=== PATIENT | male | born 1995 | race Caucasian/White ===

== ENCOUNTER 2024-11-26 09:46 | Emergency (ER) | payer OTHER, SELFPAY ==
[2024-11-26] VITALS (17 sets, daily range): BP systolic 109–147; BP diastolic 70–99; PULSE 64–83; TEMP 36.5; O2SAT 97–100; BMI 29.8
--- NOTE | 2024-11-26 10:08 | ECG_ITS ---
[facility] Test Date: 2024-11-26 Pat Name: MANUEL SWENSON Department: Room: - Gender: Male Public [facility] Dentist: : 1995 Requested By: [id number] Order Number: [id number] Reading MD: DIDI THOMPSON Measurements Intervals [place] Rate: 77 P: 60 AL: 116 QRS: 94 QRSD: 96 T: 54 QT: 368 QTc: 399 Interpretive Statements 1100 Sinus rhythm 2210 Short AL interval 7102 Moderate right axis deviation 9150 abnormal ECG No previous ECG available for comparison Electronically Signed On 11-26-2024 11:34:09 EDT by DIDI THOMPSON
[2024-11-26 10:13] LABS: Basophils Absolute Auto 0.1 10^3/uL (0.0-0.1); Basophils Percent Auto 0.9 % (0.2-2.0); Eosinophils Absolute Auto 0.3 10^3/uL (0.0-0.7); Eosinophils Percent Auto 2.4 % (0.9-7.0); Hematocrit 46.8 % (42.0-54.0); Hemoglobin 16.2 g/dL (14.0-18.0); Immature Granulocytes Abs Auto 0.04 10^3/uL (0.00-0.03); Immature Granulocytes Pct Auto 0.4 % (0.0-0.5); Lymphocytes Absolute Auto 2.8 10^3/uL (1.2-3.8); Lymphocytes Percent Auto 25.3 % (20.5-60.0); Mean Corpuscular HGB Conc 34.6 g/dL (29.9-35.2); Mean Corpuscular Hemoglobin 30.5 pg (25.9-34.0); Mean Corpuscular Volume 88.1 fL (80.0-94.0); Mean Platelet Volume 10.1 fL (9.5-13.5); Monocytes Absolute Auto 0.7 10^3/uL (0.3-0.8); Monocytes Percent Auto 5.9 % (1.7-12.0); Neutrophils Absolute Auto 7.1 10^3/uL (1.4-6.5); Neutrophils Percent Auto 65.1 % (43.0-75.0); Platelet Count 257 10^3/uL (150-450); Red Blood Count 5.31 10^6/uL (4.70-6.10); Red Cell Distribution Width 12.5 % (11.0-15.0); White Blood Count 10.9 10^3/uL (4.0-11.0)
[2024-11-26] MEDS: KETOROLAC TROMETHAMINE 30 MG/ML VIAL 15 MG IVP (10:14)
[2024-11-26] MEDS: ORPHENADRINE 60 MG/2 ML VIAL IV (10:15)
[2024-11-26 10:26] LABS: Alanine Aminotransferase 42 U/L (16-63); Albumin Globulin Ratio 1.2; Albumin Level 4.2 g/dL (3.4-5.0); Alkaline Phosphatase 81 U/L (46-116); Aspartate Amino Transferase 19 U/L (15-37); BUN Creatinine Ratio 12.3; Bilirubin Total 0.3 mg/dL (0.2-1.0); Calcium 9.2 mg/dL (8.5-10.1); Chloride 103 mmol/L (98-107); Estimated GFR (African America >60 (>=60 mL/min/1.73m^2); Estimated GFR (Non-African Ame >60 (>=60 mL/min/1.73m^2); Globulin 3.5 g/dL; Glucose 84 mg/dL (74-106); Sodium 137 mmol/L (136-145); Total Protein 7.7 g/dL (6.4-8.2); Troponin I High Sensitivity 13.4 pg/mL (4.0-76.1)
--- NOTE | 2024-11-26 11:57 | ED.CHESTPAI1 ---
HPI - Chest Pain General Chief Complaint: Chest Pain Stated Complaint: CHEST PAINS Time Seen by Provider: 11/26/24 09:55 Source: patient Mode of arrival: walk-in Limitations: no limitations History of Present Illness HPI narrative: The patient 29-year-old male coming to the ER with a left-sided chest pain mostly in the pectoral area radiating to the left shoulder as well as left arm that he noticed over the last more than 2 weeks, patient mentioned that the pain gets worse whenever he moves his left upper extremity He denies any difficulty breathing cough nausea vomiting or any other concerns, patient pain exacerbated by taking deep breath or movement He denies any other concerns Related Data Previous Rx's ?Medication ?Instructions ?Recorded diclofenac sodium 75 mg 75 mg PO BID PRN pain #20 tabs 11/26/24 tablet,delayed release orphenadrine citrate 100 mg 100 mg PO BID PRN muscle spasm #20 11/26/24 tablet,extended release tabs Allergies Allergy/AdvReac Type Severity Reaction Status Date / Time No Known Drug Allergies Allergy Verified 11/26/24 09:50 Review of Systems ROS Status of ROS 10 or more systems reviewed and unremarkable except as noted in history and below [facility] Medical History (Updated 11/26/24 @ 11:58 by Kandi Millan MD) No pertinent past medical history ?Z78.9 - Other specified health status (ICD-10) Surgical History (Updated 11/26/24 @ 09:58 by Dudley Soler) No pertinent past surgical history ?Z78.9 - Other specified health status (ICD-10) Social History Little interest or pleasure in doing things: not at all Feeling down, depressed, or hopeless: not at all Exam Narrative Exam Narrative: Nurses notes and vital signs reviewed and patient is not hypoxic. General: Well-appearing and in no apparent distress. Skin: Warm, dry, no pallor noted. No rash. Head: Normocephalic, atraumatic. Neck: Supple, non-tender. Eye: Pupils are equal, round and EOMI. No scleral icterus. Ears, Nose, Mouth, and Throat: TM are clear, no nasal mucosal hypertrophy. Oral mucosa is moist, no posterior oropharynx erythema, uvula is mid-line Cardiovascular: Regular Rate and Rhythm without murmur, gallop or rub. Respiratory: No accessory muscle use or respiratory distress. Lungs are clear to auscultation, no wheezing, rales or rhonchi Chest Wall: Tenderness of the pectoral area as well as the left scapular area Back: No midline thoracic or lumbar vertebral tenderness. No CVA tenderness Musculoskeletal: normal ROM, no calf or popliteal tenderness, no lower extremity edema/swelling GI: Abdomen is soft, non-distended. Normal bowel sounds. No masses appreciated. No tenderness to palpation. No rebound, guarding, or rigidity noted. Neurological: A&O x4. No cranial nerve dysfunction observed. No truncal ataxia. Moves all extremities. Sensation intact. Psychiatric: Cooperative and interactive. Normal mood and affect. Constitutional Vital Signs, click to edit/add: Last Vital Signs Temp 97.7 F 11/26/24 09:50 Pulse 65 11/26/24 12:00 Resp 23 H 11/26/24 12:00 BP 128/78 11/26/24 12:00 Pulse Ox 98 11/26/24 12:00 O2 Del Method Room Air 11/26/24 09:58 Course Vital Signs Vital signs: Vital Signs Temperature 97.7 F 11/26/24 09:50 Pulse Rate 70 11/26/24 09:50 Respiratory Rate 18 11/26/24 09:50 Blood Pressure 147/93 H 11/26/24 09:50 Pulse Oximetry 100 11/26/24 09:50 Oxygen Delivery Method Room Air 11/26/24 09:50 Temperature 97.7 F 11/26/24 09:50 Pulse Rate 65 11/26/24 12:00 Respiratory Rate 23 H 11/26/24 12:00 Blood Pressure 128/78 11/26/24 12:00 Pulse Oximetry 98 11/26/24 12:00 Oxygen Delivery Method Room Air 11/26/24 09:58 MDM - Chest Pain MDM Narrative Medical decision making narrative: As the patient EKG was showing sinus rhythm with no ST elevation or depression Chest x-ray shows no acute pathology on the prelim reading The patientCBC and chemistry showed no acute pathology And the troponin was negative Patient feeling better after initial treatment he was discharged home with the Voltaren and Norflex supportive care The patient is to follow up with primary care physician in next 2-3 days or to return to the emergency department should any of the signs or symptoms worsen or new symptoms develop. The patient agrees with the following Diagnosis and Treatment plan and the patient will be discharged home. Lab Data Labs: Lab Results 11/26/24 Range/Units 09:58 WBC 10.9 (4.0-11.0) 10^3/uL RBC 5.31 (4.70-6.10) 10^6/uL Hgb 16.2 (14.0-18.0) g/dL Hct 46.8 (42.0-54.0) % MCV 88.1 (80.0-94.0) fL MCH 30.5 (25.9-34.0) pg MCHC 34.6 (29.9-35.2) g/dL RDW 12.5 (11.0-15.0) % Plt Count 257 (150-450) 10^3/uL MPV 10.1 (9.5-13.5) fL Neut % (Auto) 65.1 (43.0-75.0) % Lymph % (Auto) 25.3 (20.5-60.0) % [place] % (Auto) 5.9 (1.7-12.0) % Eos % (Auto) 2.4 (0.9-7.0) % Baso % (Auto) 0.9 (0.2-2.0) % Neut # (Auto) 7.1 H (1.4-6.5) 10^3/uL Lymph # (Auto) 2.8 (1.2-3.8) 10^3/uL [place] # (Auto) 0.7 (0.3-0.8) 10^3/uL Eos # (Auto) 0.3 (0.0-0.7) 10^3/uL Baso # (Auto) 0.1 (0.0-0.1) 10^3/uL Abs Immat Gran (auto) 0.04 H (0.00-0.03) 10^3/uL Imm/Tot Granulo (auto) 0.4 (0.0-0.5) % Sodium 137 (136-145) mmol/L Potassium 4.0 (3.5-5.1) mmol/L Chloride 103 (98-107) mmol/L Carbon Dioxide 30.0 (21.0-32.0) mmol/L Anion Gap 8.0 BUN 13.0 (7.0-18.0) mg/dL Creatinine 1.06 (0.70-1.30) mg/dL Est GFR ( Amer) >60 (>=60 mL/min/1.73m^2) Est GFR (Non-Af Amer) >60 (>=60 mL/min/1.73m^2) BUN/Creatinine Ratio 12.3 Glucose 84 (74-106) mg/dL Calcium 9.2 (8.5-10.1) mg/dL Total Bilirubin 0.3 (0.2-1.0) mg/dL AST 19 (15-37) U/L ALT 42 (16-63) U/L Alkaline Phosphatase 81 (46-116) U/L Troponin I High Sens 13.4 (4.0-76.1) pg/mL Total Protein 7.7 (6.4-8.2) g/dL Albumin 4.2 (3.4-5.0) g/dL Globulin 3.5 g/dL Albumin/Globulin Ratio 1.2 Discharge Plan Discharge Chief Complaint: Chest Pain Clinical Impression: Atypical chest pain Patient Disposition: Home, Self-Care Time of Disposition Decision: 11:58 Condition: Good Mode of Transportation: Private Vehicle Prescriptions / Home Meds: New orphenadrine citrate 100 mg tablet extended release 100 mg PO BID PRN (Reason: muscle spasm) Qty: 20 0RF diclofenac sodium 75 mg tablet,delayed release (DR/EC) 75 mg PO BID PRN (Reason: pain) Qty: 20 0RF Print Language: Danish Instructions: Chest Wall Pain (ED) Referrals: Physician,Non-Staff, MD [Primary Care Provider] - 1 week Discharge Date/Time: 11/26/24 12:13
== END 2024-11-26 12:13 | disposition home or self-care (01) ==
PROVIDERS: Emergency Provider Emergency Medicine
DX: R07.89 Other chest pain (principal)
CPT/HCPCS: 36415; 71045; 80053; 84484; 85025; 93005; 96374; 96375; 99285; J1885; J2360